=== PATIENT | female | born 1970 | race Caucasian/White ===

== ENCOUNTER → 2016-04-17 | Outpatient (CLI) | payer MEDICAID ==
--- NOTE | 2016-04-17 12:20 | US ---
Complete Abdominal Sonography Clinical History: 46-year-old female with epigastric pain and postprandial bloating. ICD10 Diagnostic Code: R10.9. Technique: A curvilinear 5 MHz transducer was used to sonographically evaluate the upper abdomen. Col or Doppler was also used. Comparison study: None. Findings: The pancreatic contour is normal, and the abdominal aorta is normal in size and tapers norm ally. The visualized IVC is normal in caliber. The main portal vein is patent, and there is a normal appearance to the hepatic vein trifurcation. There is no intra- or extrahepatic bile duct dilatation. The common bile duct measures 3.9 mm. The gallbladder is moderately distended, with no stones, sludg e, wall thickening, pericholecystic fluid, or sonographic Soto sign. The liver is mildly enlarged, measuring 18.5 cm along the right midaxillary line. Moderate diffuse increased echogenicity is consis tent with steatosis (fatty infiltration). There is no ascites or pleural effusion. The right kidney m easures 11.5 x 5.3 x 5.0 cm, and in the lower pole, there is a 1.0 x 1.1 x 1.2 cm anechoic cyst. The left kidney is normal, measuring 11.9 x 5.5 x 5.4 cm. The renal cortical thickness is normal, measuri ng 1.5 cm. The spleen is normal, measuring 10.3 x 4.8 x 8.4 cm. Impression: 1. Mild hepatomegaly with diffuse steatosis. 2. Normal appearance of the gallbladder. 3. There is a simple-appearing 12 mm lower pole right renal cortical cyst. If there is further clinical concern regarding the patient's postprandial symptoms, a nuclear medicin e hepatobiliary scan with gallbladder ejection fraction could be considered.
== END ==
LOC: BRMIMAGING 11:26
PROVIDERS: ATTEND Registered Nurse
DX: R16.0 Hepatomegaly, not elsewhere classified (principal); K76.0 Fatty (change of) liver, not elsewhere classified; N28.1 Cyst of kidney, acquired
CPT/HCPCS: 76700-PO